=== PATIENT | male | born 1950 | race Caucasian/White ===

== ENCOUNTER 2023-01-05 07:21 | Day surgery (SDC) | payer OTHER ==
[2023-01-01 14:59] LABS: Absolute Lymphocytes (CBC) 1.2 K/uL (0.7-4.9); Hematocrit 40.8 % (39.6-49.0); Lymphocytes % 20.8 % (15.3-44.8); MCV 88.5 fL (80-100); MPV 7.3 fL (7.6-11.3); Platelets 290 thou/uL (152-406); RBC Red Blood Cell Count 4.61 M/uL (4.33-5.43)
[2023-01-01 15:08] LABS: Protime INR 1.1
--- NOTE | 2023-01-01 15:22 | RAD REPORT ---
EXAM DESCRIPTION: Kurt Kessler And Hermelinda (2 Views)01/01/2023 3:12 pm CLINICAL HISTORY: Preop for hernia repair. Hypertension COMPARISON: None FINDINGS: Lungs appear mildly to moderately hyperaerated. The lungs appear clear of acute infiltrate. The heart is normal size IMPRESSION: No acute abnormalities displayed
--- NOTE | 2023-01-02 15:23 | EKG ---
Test Date: 2023-01-01 Test Time: 14:35:26 Chemist Steroids: CHRIS MEASUREMENT RESULTS: Intervals: Rate: 57 IN: 200 QRSD: 86 QT: 412 QTc: 401 [place]: P: 56 IN: 200 QRS: 57 T: 69 INTERPRETIVE STATEMENTS: Sinus bradycardia Otherwise normal ECG Compared to ECG 10/21/2001 09:16:00 No significant changes Electronically Signed On 01-02-23 15:21:20 CDT by Royal Wright
[2023-01-05] MEDS ORDERED: Ringers Lactate 1,000 ML IV ONE ×2 (07:47→11:21)
[2023-01-05] MEDS ORDERED: CEFAZOLIN SODIUM 2 GM/VIAL ONE (07:47)
[2023-01-05] MEDS ORDERED: SUCCINYLCHOLINE 20 MG/ML (10 ML) IV ONE (08:24)
[2023-01-05] MEDS ORDERED: FENTANYL CITR 100 MCG/2 ML ONE (08:26)
[2023-01-05] MEDS ORDERED: propofoL 200 MG/20 ML VIAL IV ONE (08:26)
[2023-01-05] MEDS ORDERED: MIDAZOLAM HCL 2 MG/2 ML INJ ONE (08:27)
[2023-01-05] MEDS ORDERED: ROCURONIUM 50 MG/5 ML VIAL IV ONE (08:27)
[2023-01-05] MEDS ORDERED: LIDOCAINE 2% MPF 5 ML VIAL ONE (08:52)
[2023-01-05] MEDS ORDERED: EPHEDRINE SULF 50 MG/ML VIAL ONE (08:59)
[2023-01-05] MEDS ORDERED: dexAMETHasone 10 MG/ML VIAL ONE (09:00)
[2023-01-05] MEDS ORDERED: ONDANSETRON 4 MG/2 ML VIAL ONE (09:11)
[2023-01-05] MEDS ORDERED: KETOROLAC 30 MG/ML INJ ONE (09:11)
[2023-01-05] MEDS ORDERED: NEOSTIGMINE 1 MG/ML -10 ML VIAL ONE (09:12)
[2023-01-05] MEDS ORDERED: GLYCOPYRROLATE 0.2 MG/ML SYR ONE (09:12)
[2023-01-05] MEDS ORDERED: KETAMINE HCL IN 0.9 % NACL 50 MG/5 ML SYRINGE IV ONE (09:13)
[2023-01-05] MEDS ORDERED: Mastisol Adhesive Liq ONE (09:34)
--- NOTE | 2023-01-05 09:55 | P.OP ---
Date of Service: 01/05/23 Preop diagnosis: Right inguinal hernia Postop diagnosis: Same Procedure performed: Repair of right inguinal hernia Surgeon: Naveed Del Valle MD Customer Acquisition Manager: Trisha HURT Estimated blood loss: Minimal Specimen: Hernia sac and cord lipoma Findings: As above Anesthesia: General Complications: None Drains: None Fluids and blood products: Nonapplicable Disposition: Recovery room Operative note: Patient brought to the OR and placed in supine position. General anesthesia begun. Patient prepped and draped in the usual sterile fashion. Marcaine 0.5% infiltrated for postop pain control in a field block fashion in the right groin region. 15 blade used to make a 4 cm incision between the pubic tubercle and the anterior iliac superior spine. Subcutaneous tissue divided and bleeding controlled cautery. Liyah's fascia identified and divided. Aponeurosis of the external inguinal muscle identified and mobilized inferiorly to expose shelving edge. External ring opened. Ilioinguinal nerve identified and retracted out of the field of dissection. Cord mobilized at the pubic tubercle. Cord skeletonized. Large cord lipoma and a large hernia sac identified. Sharp and blunt dissection used to free the structures from the cord structures. High ligation of the hernia sac done with 2-0 Prolene suture ligature and freehand tie. 2-0 chromic used to tie off the base of the cord lipoma. Both structures excised and sent to pathology as specimen. Marlex mesh plug placed in the internal ring and secured with VersaTack stapler. Onlay mesh placed in the inguinal floor and secured medially to the pubic tubercle, superior to the conjoined tendon, inferiorly to the shelving edge and laterally to each other. Ilioinguinal nerve and cord structures placed back in anatomic location. 2-0 Prolene used to close the aponeurosis. 3-0 chromic used to reapproximate Liyah's fascia. 3-0 chromic used to close skin. Sterile dressing applied. Patient awakened and taken to recovery room in good general condition. CC: Dr. Mohan's office
[2023-01-05] MEDS ORDERED: HYDROCODONE/APAP 7.5/325 MG TAB PO PRN (09:58)
[2023-01-05 10:16] VITALS: BP 140/68; TEMP 98; O2SAT 96
== END 2023-01-05 12:15 | disposition home or self-care (01) ==
LOC: OR 07:21
PROVIDERS: ATTEND Surgery
PROC: 0YQ50ZZ Repair Right Inguinal Region, Open Approach (ICD-10-PCS; principal; 2023-01-05 08:30)
DX: K40.90 Unilateral inguinal hernia, without obstruction or gangrene, not specified as recurrent (principal)
CPT/HCPCS: 93005; 85025; 80048; 36415; 85610; 88302; 85730; 71046; 49505; J2704; J2710; J2001; J2250; J3010; J1100; J2405; J7120 ×2

== ENCOUNTER 2024-07-26 06:27 | Inpatient (IN) | payer OTHER ==
[2024-07-26 07:25] LABS: Absolute Lymphocytes (CBC) 0.4 K/uL (0.7-4.9); Absolute Monocytes 0.7 K/uL (0.1-1.3); Absolute Neutrophil 6.1 K/uL (1.8-8.0); Basophils % 0.5 % (0-1.3); Eosinophils % 0.6 % (0-4.4); Hematocrit 39.1 % (39.6-49.0); Hemoglobin 13.4 g/dL (13.6-17.9); MCH 30.2 pg (27.0-35.0); MCHC 34.3 g/dL (32.0-36.0); MCV 87.9 fL (80-100); Monocytes % 9.9 % (3.3-12.3); Platelets 226 thou/uL (152-406); RBC Red Blood Cell Count 4.44 M/uL (4.33-5.43); Red Cell Distribution Width 13.8 % (12.1-15.2)
[2024-07-26 07:48] LABS: Albumin 3.4 g/dL (3.4-5.0); Albumin/Globulin Ratio 0.9 (1.1-1.8); Anion Gap 6.3 mEq/L (5.0-15.0); Bilirubin Direct 0.3 mg/dL (0-0.2); Bilirubin Indirect, Calculated 0.4 mg/dL (0.2-0.8); Bilirubin Total 0.7 mg/dL (0.2-1.0); Globulin 3.6 g/dL (2.3-3.5); Magnesium 1.8 mg/dL (1.6-2.4); Potassium 3.3 mEq/L (3.5-5.1)
[2024-07-26 07:50] LABS: Troponin High Sensitivity 94.4 pg/mL (<58.9)
--- NOTE | 2024-07-26 08:32 | RAD REPORT ---
Procedure: Chest Single View HISTORY: Chest pain COMPARISON: 2022 FINDINGS: The lungs appear clear of acute infiltrate. No significant pleural effusion noted. The heart is normal size. IMPRESSION: No acute abnormality is displayed.
[2024-07-26] MEDS ORDERED: ASPIRIN 81 MG CHEWABLE TABLET ONE (08:34)
[2024-07-26] MEDS ORDERED: ACETAMINOPHEN 500 MG TAB PO PRN (08:39)
--- NOTE | 2024-07-26 08:39 | EDPHYS ---
Physician Documentation [facility] Name: Rob Cunningham Age: 74 yrs Sex: Male : 1950 Arrival Date: 07/26/2024 Time: 06:27 Bed 8 Private MD: ED Physician David Bentley HPI: 07/26 11:51 This 74 yrs old Male presents to ER via Ambulatory with complaints of Chest Pain. ms3 11:51 74-year-old male with past medical history of hypertension, hypercholesterolemia, ms3 gastric ulcers presents to the emergency department for nausea, vomiting, diarrhea that began on Thursday, nausea that continued on Thursday, and diarrhea that began again yesterday. Patient states last night he started developing chest tightness. He took Tylenol without relief of his symptoms. Patient states his discomfort is a 6/10. He denies shortness of breath.. Historical: - Allergies: 06:36 No Known Allergies; lg3 - Home Meds: 06:36 fenofibrate oral [Active]; amlodipine oral [Active]; rempril [Active]; atorvastatin lg3 oral [Active]; Omeprazole Oral [Active]; aspirin 81 mg Oral capsule [Active]; Folic Acid Oral [Active]; - PMHx: 06:36 Hypertensive disorder; Hypercholesterolemia; gastric ulcers; lg3 - PSHx: 06:36 right inguinal hernia repair; right ankle; lg3 - Immunization history:: Adult Immunizations up to date. - Infectious Disease History:: Denies. - Social history:: Smoking status: Patient denies any tobacco usage or history of. Patient uses alcohol, occasionally. ROS: 11:51 Constitutional: Negative for fever, and chills. ms3 11:51 Respiratory: Negative for shortness of breath, cough, wheezing, and pleuritic chest pain, 11:51 MS/Extremity: Negative for injury and deformity, Skin: Negative for injury, rash, and discoloration, 11:51 Cardiovascular: Positive for chest pain, 11:51 Abdomen/GI: Positive for nausea, vomiting, and diarrhea, Exam: 11:51 Constitutional: This is a well developed, well nourished patient who is awake, alert, ms3 and in no acute distress. Cardiovascular: Regular rate and rhythm with a normal S1 and S2. No gallops, murmurs, or rubs. Normal PMI, no JVD. No pulse deficits. Respiratory: Lungs have equal breath sounds bilaterally, clear to auscultation and percussion. No rales, rhonchi or wheezes noted. No increased work of breathing, no retractions or nasal flaring. Abdomen/GI: Soft, non-tender, with normal bowel sounds. No distension or tympany. No guarding or rebound. No evidence of tenderness throughout. Skin: Warm, dry with normal turgor. Normal color with no rashes, no lesions, and no evidence of cellulitis. MS/ Extremity: Pulses equal, no cyanosis. Neurovascular intact. Full, normal range of motion. Vital Signs: 06:33 BP 149 / 82; Pulse 71; Resp 17 S; Temp 97.8(O); Pulse Ox 100% on R/A; Weight 79.38 kg lg3 (R); Height 6 ft. 2 in. (R); Pain 7/10; 08:55 BP 129 / 85; Pulse 58; Resp 16; Pulse Ox 99% on R/A; ld1 10:26 BP 126 / 67; Pulse 59; Resp 18; Pulse Ox 98% on R/A; ld1 06:33 Body Mass Index 22.47 (79.38 kg, 187.96 cm) lg3 06:33 Pain Scale: Adult lg3 MDM: 07:29 Medical Screening Exam initiated ms3 08:36 Management of patient was discussed with the following: Hospitalist: Dr Mohan- Would ms3 like cardiology consult, Lovenox 80 mg q 12 hours, and inpatient admission.. 11:51 Differential diagnosis: abnormal EKG, acute myocardial infarction, coronary artery ms3 disease chest wall pain. HEART Score: History: Moderately Suspicious (1), ECG: Normal (0), Age: > or = 65 years (2), Risk Factors: 1 or 2 risk factors (1), [Hypercholesterolemia] [Hypertension] Troponin: > 1 and < 3 x normal limit (1), Total Score = 3. The patient was given aspirin in the Emergency Department. Data reviewed: vital signs, nurses notes, lab test result(s), EKG, radiologic studies, and as a result, I will admit patient. Consideration of Admission/Observation Patient was admitted/placed on observation. Management of patient was discussed with the following: Disabilities Services Officer: Discussed case with Dr Wright. I considered the following discharge prescriptions or medication management in the emergency department Medications were administered in the Emergency Department. See MAR. Independent interpretation of the following test(s) in the Emergency Department EKG: See my EKG interpretation above. Counseling: I had a detailed discussion with the patient and/or guardian regarding the historical points, exam findings, and any diagnostic results supporting the discharge/admit diagnosis, lab results, radiology results, the need for further work-up and treatment in the hospital. ED course: Discussed elevated troponin and necessity for admission with patient and his . They understand and agree with plan. All questions were answered. Case was discussed with Dr. Mohan.. 07/26 07:03 Order name: Basic Metabolic Panel; Complete Time: 08:03 ms3 07/26 07:03 Order name: CBC with Diff; Complete Time: 08:03 ms3 07/26 07:03 Order name: LFT's; Complete Time: 08:03 ms3 07/26 07:03 Order name: Magnesium; Complete Time: 08:03 ms3 07/26 07:03 Order name: Troponin HS; Complete Time: 08:03 ms3 07/26 08:44 Order name: CBC with Automated Diff EDMS 07/26 08:44 Order name: Comprehensive Metabolic Panel EDMS 07/26 08:44 Order name: Troponin High Sensitivity EDMS 07/26 08:44 Order name: Troponin High Sensitivity EDMS 07/26 08:44 Order name: Troponin High Sensitivity EDMS 07/26 08:44 Order name: Troponin High Sensitivity EDMS 07/26 07:03 Order name: XRAY Chest (1 view); Complete Time: 08:34 ms3 07/26 07:03 Order name: EKG; Complete Time: 07:03 ms3 07/26 08:44 Order name: CONS Physician Consult EDMS 07/26 07:03 Order name: Cardiac monitoring; Complete Time: 07:16 ms3 07/26 07:03 Order name: EKG - Nurse/Tech; Complete Time: 07:16 ms3 07/26 07:03 Order name: IV Saline Lock; Complete Time: 07:16 ms3 07/26 07:03 Order name: Labs collected and sent; Complete Time: 07:16 ms3 07/26 07:03 Order name: O2 Per Protocol; Complete Time: 07:16 ms3 07/26 07:03 Order name: O2 Sat Monitoring; Complete Time: 07:16 ms3 Administered Medications: 08:37 Drug: Aspirin PO Chewable Tablet 324 mg PO once; 81 mg tablets x 4 Route: PO; ld1 09:00 Follow up: Response: No adverse reaction iw 09:43 Drug: Enoxaparin Sub-Q 80 mg Sub-Q once Route: Sub-Q; Site: abdomen; ld1 10:00 Follow up: Response: No adverse reaction iw Disposition Summary: 07/26/24 08:38 Hospitalization Ordered Notes: Hospitalization Status: Inpatient Admission ms3 Provider: Toni Mohan ms3 Condition: Stable ms3 Problem: new ms3 Symptoms: are unchanged ms3 Bed/Room Type: Standard ms3 Location: Telemetry/MedSurg (Inpatient)(07/26/24 15:40) bd Room Assignment: [facility](07/26/24 15:40) Diagnosis - Chest pain, unspecified ms3 - Elevated troponin ms3 - Nausea with vomiting, unspecified ms3 Forms: - Medication Reconciliation Form ms3 - SBAR form ms3 - Leadership Thank You Letter ms3 Signatures: Dispatcher [employer] EDJessica Shepard Lacie, RN RN lg3 David Bentley, DO ms3 Denisha Bentley RN RN ld1 Mary Roque RN RN kb3 Rayna Carrillo RN iw Corrections: (The following items were deleted from the chart) 10:46 08:38 Telemetry/MedSurg (Inpatient) ms3 kb3 10:46 08:38 ms3 kb3 15:40 10:46 [facility] ER HOLD kb3 bd 15:40 10:46 ERHOLD- kb3 bd
--- NOTE | 2024-07-26 08:39 | ER ---
Nurse's Notes [facility] Name: Rob Cunningham Age: 74 yrs Sex: Male : 1950 Arrival Date: 07/26/2024 Time: 06:27 Bed 8 Private MD: Diagnosis: Chest pain, unspecified;Elevated troponin;Nausea with vomiting, unspecified Presentation: 07/26 06:33 Chief complaint: Patient states: vomiting and diarrhea starting Thursday. new onset lg3 pain to diaphragm region at 0000. Coronavirus screen: Client denies travel out of the [place] in the last 14 days. At this time, the client does not indicate any symptoms associated with coronavirus-19. Ebola Screen: No symptoms or risks identified at this time. Initial Sepsis Screen: Does the patient meet any 2 criteria? No. Patient's initial sepsis screen is negative. Does the patient have a suspected source of infection? No. Patient's initial sepsis screen is negative. Risk Assessment: Do you want to hurt yourself or someone else? Patient reports no desire to harm self or others. Onset of symptoms was July 26, 2024. 06:33 Method Of Arrival: Ambulatory lg3 06:33 Acuity: TRAN 3 lg3 Triage Assessment: 06:36 General: Appears in no apparent distress. comfortable, Behavior is calm, cooperative. lg3 Pain: Complains of pain in diaphragm Pain does not radiate. Pain currently is 7 out of 10 on a pain scale. Quality of pain is described as heavy, pressure. EENT: No deficits noted. No signs and/or symptoms were reported regarding the EENT system. Neuro: No deficits noted. Rodrigues Agitation-Sedation Scale (RASS): 0 - Alert and Calm Level of Consciousness is awake, alert, obeys commands, Oriented to person, place, time, situation. Cardiovascular: Reports chest pain, Heart tones S1 S2 present Capillary refill < 3 seconds Clubbing of nail beds is absent JVD is absent Patient's skin is warm and dry. Rhythm is sinus rhythm. Respiratory: No deficits noted. Airway is patent Respiratory effort is even, unlabored, Respiratory pattern is regular, symmetrical, Breath sounds are clear bilaterally. GI: Abdomen is flat, non-distended, Reports diarrhea, indigestion, nausea, vomiting. : No signs and/or symptoms were reported regarding the genitourinary system. Derm: No deficits noted. No signs and/or symptoms reported regarding the dermatologic system. Skin is intact, is healthy with good turgor, Skin is dry, Skin is normal, Skin temperature is warm. Musculoskeletal: No deficits noted. No signs and/or symptoms reported regarding the musculoskeletal system. Circulation, motion, and sensation intact. Range of motion: intact in all extremities. Historical: - Allergies: 06:36 No Known Allergies; lg3 - Home Meds: 06:36 fenofibrate oral [Active]; amlodipine oral [Active]; rempril [Active]; atorvastatin lg3 oral [Active]; Omeprazole Oral [Active]; aspirin 81 mg Oral capsule [Active]; Folic Acid Oral [Active]; - PMHx: 06:36 Hypertensive disorder; Hypercholesterolemia; gastric ulcers; lg3 - PSHx: 06:36 right inguinal hernia repair; right ankle; lg3 - Immunization history:: Adult Immunizations up to date. - Infectious Disease History:: Denies. - Social history:: Smoking status: Patient denies any tobacco usage or history of. Patient uses alcohol, occasionally. Screenin:17 [facility] ED Fall Risk Assessment (Adult) History of falling in the last 3 months, iw including since admission No falls in past 3 months (0 pts) Confusion or Disorientation No (0 pts) Intoxicated or Sedated No (0 pts) Impaired Gait No (0 pts) Mobility Assist Device Used No (0 pt) Altered Elimination No (0 pt) Score/Fall Risk Level 0 - 2 = Low Risk Oriented to surroundings, Maintained a safe environment. Abuse screen: Denies threats or abuse. Nutritional screening: No deficits noted. Tuberculosis screening: No symptoms or risk factors identified. Assessment: 07:16 General: Appears in no apparent distress. Behavior is calm, cooperative. Pain: iw Complains of pain in diaphragm, right breast and left breast. Pain: Pain does not radiate. Pain began 1 day ago. Is continuous. Neuro: Level of Consciousness is awake, alert, obeys commands, Oriented to person, place, time, situation, Moves all extremities. Full function. GI: Reports diarrhea, nausea. Derm: Skin is intact, is healthy with good turgor. Musculoskeletal: Range of motion: intact in all extremities. 08:55 Reassessment: Patient appears in no apparent distress at this time. No changes from ld1 previously documented assessment. Patient and/or family updated on plan of care and expected duration. Pain level reassessed. Patient is alert, oriented x 3, equal unlabored respirations, skin warm/dry/pink. Vital Signs: 06:33 BP 149 / 82; Pulse 71; Resp 17 S; Temp 97.8(O); Pulse Ox 100% on R/A; Weight 79.38 kg lg3 (R); Height 6 ft. 2 in. (R); Pain 7/10; 08:55 BP 129 / 85; Pulse 58; Resp 16; Pulse Ox 99% on R/A; ld1 10:26 BP 126 / 67; Pulse 59; Resp 18; Pulse Ox 98% on R/A; ld1 06:33 Body Mass Index 22.47 (79.38 kg, 187.96 cm) lg3 06:33 Pain Scale: Adult 3 ED Course: 06:29 Patient arrived in ED. jj6 06:36 Triage completed. lg3 06:36 Arm band placed on left wrist. lg3 07:00 EKG done, by ED staff. Inserted saline lock: 22 gauge in left antecubital area, using vk aseptic technique. Blood collected. Flushed with 10 mL NS. 07:02 David Bentley DO is Attending Physician. ms3 07:16 Rayna Carrillo, RN is Primary Nurse. iw 07:17 Patient has correct armband on for positive identification. Placed in gown. Provided iw Education on: labs. Client placed on continuous cardiac and pulse oximetry monitoring. NIBP monitoring applied. client account specialist on. 07:48 XRAY Chest (1 view) In Process Unspecified. EDMS 08:37 Toni Mohan MD is Hospitalizing Provider. ms3 Administered Medications: 08:37 Drug: Aspirin PO Chewable Tablet 324 mg PO once; 81 mg tablets x 4 Route: PO; ld1 09:00 Follow up: Response: No adverse reaction iw 09:43 Drug: Enoxaparin Sub-Q 80 mg Sub-Q once Route: Sub-Q; Site: abdomen; ld1 10:00 Follow up: Response: No adverse reaction iw Medication: 07:17 VIS not applicable for this client. iw Outcome: 08:38 Decision to Hospitalize by Provider. ms3 16:11 Patient left the ED. ld1 Signatures: Dispatcher [employer] EDAracelis Quintanane, RN RN iw Able, Vickie, RN RN lg3 Bentley, DO ANTOINETTE Hernandez ms3 Bentley, ESTUARDO Denny RN ld1 Stella Knight6 Margareth Luciano
[2024-07-26] MEDS: ENOXAPARIN 80 MG/0.8 ML SQ SCH (09:00)
[2024-07-26] MEDS ORDERED: ENOXAPARIN 80 MG/0.8 ML SQ ONE (09:38)
--- NOTE | 2024-07-26 12:58 | P.CNS ---
Date of Consult: 07/26/24 Chief Complaint: chest pain History of Present Illness: Patient with PMH of HTN presented with abdominal pain, diarrhea for last few days then developed chest pain yesterday across chest, no radiation, felt like pressure, denies any other cardiac symptoms. Allergies No Known Allergies Allergy (Verified 01/01/23 14:27) Home medications list reviewed: Yes Home Medications: Amlodipine Besylate 5 mg PO DAILY 01/01/23 Ascorbic Acid [Vitamin C] 500 mg PO DAILY 01/01/23 Aspirin [Low Dose Aspirin EC] 81 mg PO DAILY 01/01/23 Atorvastatin Calcium [Lipitor] 20 mg PO DAILY 01/01/23 Cholecalciferol (Vitamin D3) [Vitamin D3] 2,000 unit PO DAILY 01/01/23 Cyanocobalamin (Vitamin B-12) [Vitamin B-12] 500 mcg PO DAILY 01/01/23 Fenofibrate,Micronized [Fenofibrate] 134 mg PO DAILY 01/01/23 Fish Oil/Dha/Epa [Fish Oil 1,200 mg Fish Oil] 1 each PO DAILY 01/01/23 Folic Acid 1 mg PO DAILY 01/01/23 Magnesium Oxide [Mag 0X Tab] 400 mg PO DAILY 01/01/23 Omeprazole [Prilosec] 40 mg PO DAILY 01/01/23 Ramipril [Altace] 10 mg PO DAILY 01/01/23 hydroCHLOROthiazide [Hydrochlorothiazide] 25 mg PO DAILY 01/01/23 Review of Systems 10-point ROS is otherwise unremarkable Physical Examination Temp Pulse Resp BP Pulse Ox 55 16 116/66 99 07/26/24 12:00 07/26/24 12:00 07/26/24 12:00 07/26/24 12:00 General: Alert, In no apparent distress HEENT: Atraumatic, PERRLA, Mucous membr. moist/pink, EOMI, Sclerae nonicteric Neck: Supple, 2+ carotid pulse no bruit, No LAD, Without JVD or thyroid abnormality Respiratory: Clear to auscultation bilaterally, Normal air movement Cardiovascular: Regular rate/rhythm, Normal S1 S2 Gastrointestinal: Normal bowel sounds, No tenderness Musculoskeletal: No tenderness Integumentary: No rashes Neurological: Normal gait, Normal speech, Normal tone, Normal affect Lymphatics: No axilla or inguinal lymphadenopathy Laboratory Data (last 24 hrs) 07/26/24 07/26/24 07:05 07:05 WBC 7.30 Hgb 13.4 L Hct 39.1 L Plt Count 226 Sodium 138 Potassium 3.3 L BUN 23 H Creatinine 1.02 Glucose 104 Magnesium 1.8 Total Bilirubin 0.7 AST 129 H ALT 132 H Alkaline Phosphatase 50 - Problems (1) NSTEMI (non-ST elevated myocardial infarction) Current Visit: Yes Status: Acute Plan: Troponin mild elevated, EKG no significant ST-T wave changes, continue to trend cardiac enzymes x3 NPO after midnight for coronary angiogram continue ASA 81 mg daily continue Lovenox get echo
[2024-07-26 18:22] LABS: Albumin 3.5 g/dL (3.4-5.0); Anion Gap 9.7 mEq/L (5.0-15.0); Bilirubin Total 0.8 mg/dL (0.2-1.0); Globulin 3.6 g/dL (2.3-3.5); Potassium 3.7 mEq/L (3.5-5.1); Protein, Total 7.1 g/dL (6.4-8.2)
[2024-07-26 18:23] LABS: Troponin High Sensitivity 85.7 pg/mL (<58.9)
[2024-07-26] MEDS: ATORVASTATIN 40 MG TAB PO SCH (20:01)
--- NOTE | 2024-07-27 01:23 | HP ---
Date of Admission: 07/26/2024 Chief Complaint: Chest pain. History Of Present Illness: This is a 74-year-old pleasant male patient, who started to have nausea, vomiting, diarrhea over the weekend on Thursday and as of yesterday, all of his GI symptoms resolved . Last night, he started to have some chest pain in the center and all across the lower chest, descr ibing as tightness type of feeling and he had 2 to 3 episodes of this kind of pain. Therefore, he de cided to come to emergency room today. After he was evaluated in the ER, he was admitted [facility] with non-STEMI. When I saw him this evening, he was asymptomatic. After his evaluation in the emergency room, Cardiology consultation was requested and Dr. Mccormack already has evaluated him. The patient reports that his chest pain did not radiate anywhere and did not have any associated nausea o r diaphoresis. Allergies: TO BYSTOLIC. Medications: Amlodipine 5 mg daily, aspirin 81 mg daily, atorvastatin 20 mg daily, vitamin D3 2000 u nits daily, fenofibrate 134 mg daily, folic acid 1 mg daily, hydrochlorothiazide 25 mg daily, omepraz ole 40 mg daily, ramipril 10 mg daily, vitamin B12 500 mcg daily. Review of Systems: Cardiovascular: As mentioned above. GI: As mentioned above. All other systems reviewed and negative. Past Medical History: Significant for hypertension, mixed hyperlipidemia, gastroesophageal reflux di sease, impaired fasting glucose, benign prostatic hypertrophy, abnormal liver function tests, and chr onic kidney disease. 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 Family History: Father , had prostate cancer, hypertension, hyperlipidemia. Mother has hyperten lesia, coronary artery disease. Social History: Negative for smoking. Use of alcohol, occasional beer. Physical Examination: Vital Signs: Temperature 97.9, pulse 59, respiratory rate 18, blood pressure 111/64, oxygen saturati on 97%, height 6 feet, weight 174 pounds. General: Awake, alert, oriented, not in distress. HEENT: Head atraumatic, normocephalic. Conjunctivae nonerythematous. Sclerae white. Mouth, no thr ush or edema noted. Ears/Nose, no mass, lesion, discharge noted. Neck: Supple. No JVD, lymph nodes, bruit, thyromegaly noted. Lungs: Bilateral good equal air entry. Clear to auscultation. No rhonchi. No rales. Heart: Normal heart sounds, no murmur or gallop. Abdomen: Soft, bowel sounds normal. No guarding, rigidity, tenderness, mass, hepatosplenomegaly, dis tention, or bruit noted. Extremities: No leg edema. No calf tenderness. Skin: No rash, ulcer, cellulitis. Lymphatics: No lymph node enlargement in neck, supraclavicular, infraclavicular region. Neuro: No focal neurological deficit. Chest: Unremarkable. External Genitalia: Deferred. Rectal: Deferred. Laboratory Data: WBC 7.3, hemoglobin 13.4, and platelets 226. Initial chemistry shows sodium 138, p otassium 3.3, chloride 104, bicarb 31, BUN 23, creatinine 1.02, glucose 104. Liver function tests, A ST 129, ALT 132, alkaline phosphatase 50, total bilirubin 0.7. Initial troponin 94.4. Repeat chemis try shows sodium 141, potassium 3.7, chloride 105, bicarb 30, BUN 16, creatinine 0.93, glucose 97. A ST 104, ALT 143, troponin 85.7, and alkaline phosphatase 49. Chest x-ray, no acute cardiopulmonary c hanges. EKG, no acute ST-T changes. Impression: 1. Non-STEMI. 2. Abnormal liver function tests. 3. Hypertension. 4. Mixed hyperlipidemia. 5. Chronic aspirin therapy. 6. Gastroesophageal reflux disease. 7. Impaired fasting glucose. 8. Benign prostatic hypertrophy. 9. Abnormal liver function test. 10. Acute gastroenteritis. Plan: We will admit the patient to hospital for further evaluation and management of this problem. The patient is appropriate for inpatient and is expected to spend 2 midnights in hospital. We will g o ahead and continue aspirin and Lovenox which was started in the emergency room after I was contacte d. Cardiology consultation was requested and Dr. Mccormack has evaluated the patient. He is planning t o do cardiac cath tomorrow and we will keep the patient n.p.o. after midnight. High dose statin ther apy will be started. We will get a lipid profile done tomorrow morning. For hypertension, we will n ot give any of the blood pressure medications at this point. Monitor blood pressure and consider to restart blood pressure medication at appropriate time. For acute gastroenteritis, no need for furthe r intervention as the patient's symptoms has resolved. For abnormal liver function tests, I will go ahead and order abdominal ultrasound for further evaluation. Total time spent today was 80 minutes including review of last office visit record from 07/06/2024, c ommunication with emergency room physician, review of emergency room visit record, and performing manda casanova's evaluation and management. FILI/MODL Voice ID: [id number]
[2024-07-27] MEDS: ASPIRIN 81 MG CHEWABLE TABLET ONE (05:56)
[2024-07-27] MEDS: ASPIRIN EC 81 MG TAB PO ONE (06:11)
[2024-07-27] MEDS: PANTOPRAZOLE 40MG TABLET PO SCH (06:16)
[2024-07-27] MEDS: ASPIRIN EC 81 MG TAB PO SCH (06:18)
--- NOTE | 2024-07-27 07:51 | RAD REPORT ---
EXAMINATION: COMPLETE ABDOMINAL ULTRASOUND CLINICAL INDICATION: abn LFTs TECHNIQUE: Grayscale ultrasonography of the abdomen was performed. COMPARISON: 01/23/2021 FINDINGS: LIVER: Normal size and echogenicity. No masses seen. GALLBLADDER: No gallstones, gall bladder wall thickening or pericholecystic fluid. BILE DUCTS: Intrahepatic and extrahepatic bile ducts appear normal. Measured near the calli hepatis , the common bile duct is 4 mm. RIGHT KIDNEY: Normal in echogenicity and size. No calculus, solid mass or hydronephrosis. LEFT KIDNEY:. Normal in echogenicity and size. No calculus, solid mass or hydronephrosis. SPLEEN: Normal in echogenicity, with length of 11.3 cm. PANCREAS/AORTA: Partially obscured by bowel gas without abnormality grossly appreciated. IMPRESSION: No acute or significant abnormalities.
[2024-07-27] MEDS ORDERED: HEPARIN 10,000 UNIT/10 ML VIAL IV ONE (08:43)
[2024-07-27] MEDS ORDERED: HEPA 1000U/500MLS 2,000 UNIT/1,000 ML BAG IV ONE (08:43)
[2024-07-27] MEDS ORDERED: HEPARIN 5000 UNIT/ML 1 ML VIAL ONE (08:44)
[2024-07-27] MEDS ORDERED: LIDOCAINE 1% 20 ML MDV ONE (08:44)
[2024-07-27] MEDS ORDERED: MIDAZOLAM HCL 2 MG/2 ML INJ ONE (08:45)
[2024-07-27] MEDS ORDERED: FENTANYL CITR 100 MCG/2 ML ONE (08:45)
[2024-07-27] MEDS: NA CHLORIDE 0.9% 500 ML ONE (08:48)
[2024-07-27 09:18] VITALS: BMI 23.6
--- NOTE | 2024-07-27 11:37 | P.PN ---
Subjective Date of Service: 07/27/24 Chief Complaint: chest pain Subjective: No new changes, No C/O voiced, Tolerating diet, Ambulating, Improving Review of Systems 10-point ROS is otherwise unremarkable Physical Examination - Vital Signs Temperature: 98.2 F Blood Pressure: 110/59 Pulse: 54 Respirations: 17 Pulse Ox (%): 97 - Physical Exam General: Alert, In no apparent distress HEENT: Atraumatic, PERRLA, EOMI Neck: Supple, JVD not distended Respiratory: Clear to auscultation bilaterally, Normal air movement Cardiovascular: Regular rate/rhythm, Normal S1 S2 Gastrointestinal: Normal bowel sounds, No tenderness Musculoskeletal: No tenderness Integumentary: No rashes Neurological: Normal speech, Normal tone, Normal affect Lymphatics: No axilla or inguinal lymphadenopathy - Studies Medications List Reviewed: Yes Assessment And Plan - Current Problems (Diagnosis) (1) NSTEMI (non-ST elevated myocardial infarction) Current Visit: Yes Status: Acute Plan: Troponin mild elevated, no significant delta, EKG no significant ST-T wave changes, Coronary angiogram was done and did not show any significant CAD. continue ASA 81 mg daily lower lipitor to 20 mg daily outpatient follow up with PCP to check on BP medications as BP has been good off medications. stop Lovenox
[2024-07-27 12:03] VITALS: O2SAT 100
--- NOTE | 2024-07-27 12:32 | EKG ---
Test Date: 2024-07-26 Test Time: 06:39:56 Manager Medical Device: NIESHA MEASUREMENT RESULTS: Intervals: Rate: 69 WI: 196 QRSD: 88 QT: 386 QTc: 413 [place]: P: 39 WI: 196 QRS: 44 T: 34 INTERPRETIVE STATEMENTS: Normal sinus rhythm Normal ECG Compared to ECG 01/01/2023 14:35:26 Sinus bradycardia no longer present Electronically Signed On 07-27-24 12:26:23 CDT by Jacob Mccormack
--- NOTE | 2024-07-27 16:00 | OP ---
Date of Procedure: 07/27/2024 Surgeon: Jacob Mccormack Procedure Performed: Selective coronary angiogram. Indication For Procedure: Unstable angina. Complications: None. Estimated Blood Loss: Less than 50 cc. Access: Right radial, closed by TR band. Sedation Time: 20 minutes with 1 of Versed and 25 of fentanyl. Description Of Procedure: After risks, and benefits, and alternatives were explained to patient, pat ient agreed to proceed with procedure and signed informed consent. 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 Time-out was performed. Sedation was administer ed. Next, right radial access was obtained using ultrasound-guided micropuncture technique. [place] 4 .0 catheter was advanced to the aortic root. Selective angiogram was done using the same catheter. At the end of the procedure, catheter was removed over a J-wire. Sheath was removed. TR band was ap plied. Hemostasis was achieved and the patient was moved back to Recovery in stable condition. Findings: 1. Left main normal. 2. LAD; proximal mild luminal irregularities with mid 30% disease, then mild luminal irregularities. 3. Left circ; mild luminal irregularities. 4. RCA; ostial 20% to 30% disease, then mild luminal irregularities. Assessment And Plan: Mild coronary artery disease. Plan is to continue medical treatment. KIRAN/CORTES Voice ID: [id number] Report ID: [id number]
[2024-07-27 16:43] VITALS: BP 125/65; TEMP 97.9
--- NOTE | 2024-07-27 21:10 | DS ---
Date of Discharge: 07/27/2024 Disposition: Discharged to go home. Physical Examination: HEENT: Unremarkable. Lungs: Clear to auscultation. Heart: Sounds normal. Abdomen: Soft. Bowel sounds normoactive. No guarding, rigidity, tenderness, distention. EXTREMITIES: No leg edema. Laboratory Data: Today, cholesterol shows triglyceride 123, total cholesterol 85, LDL 28, HDL 32. F or chemistry yesterday; sodium 141, potassium 3.7, chloride 105, bicarb 30, BUN 16, creatinine 0.93, glucose 97. Liver function tests; AST 104, ALT 143, alkaline phosphatase 49. For troponin first set 94.4, second set 85.7, third set 89.1, and last set 89.2. Discharge Medications And Instructions: 1. Continue all prior home medications. 2. Follow up at my office next week. Hospital Course: A 74-year-old pleasant male patient came into emergency room with complaints of avery st pain. Please see dictated H and P for more information. The patient was evaluated in the emergen cy room. He was admitted to the hospital with non-STEMI. He was started on aspirin and Lovenox in e mergency room. The patient does take aspirin daily at home. His other home medications were continu ed. Cardiology consultation was obtained from Dr. Mccormack and today patient had cardiac cath done, wh ich showed 20%-30% stenosis in his coronary arteries. No intervention required. After the cardiac c ath was done, the patient was discharged to go home later this evening in stable condition. Final Diagnoses: 1. [id number] myocardial infarction. 2. Coronary artery disease. 3. Abnormal liver function test. 4. Hypertension. 5. Mixed hyperlipidemia. 6. Chronic aspirin therapy. 7. Gastroesophageal reflux disease. 8. Impaired fasting glucose. 9. Benign prostatic hypertrophy. 10. Acute gastroenteritis. Total time spent 40 minutes. FILI/MODL Voice ID: [id number] Report ID: [id number]
== END 2024-07-27 20:00 | disposition home or self-care (01) | DRG 282 ==
LOC: ER 06:27 → ERHOLD 08:39 → 2ND 15:45
PROVIDERS: ADMIT Internal Medicine; ATTEND Internal Medicine
PROC: B2111ZZ Fluoroscopy of Multiple Coronary Arteries using Low Osmolar Contrast (ICD-10-PCS; principal; 2024-07-27)
DX: I21.4 Non-ST elevation (NSTEMI) myocardial infarction (principal); I25.10 Atherosclerotic heart disease of native coronary artery without angina pectoris; I10 Essential (primary) hypertension; E78.5 Hyperlipidemia, unspecified; K21.9 Gastro-esophageal reflux disease without esophagitis; N40.0 Benign prostatic hyperplasia without lower urinary tract symptoms; Z79.82 Long term (current) use of aspirin; R73.01 Impaired fasting glucose; I12.9 Hypertensive chronic kidney disease with stage 1 through stage 4 chronic kidney disease, or unspecified chronic kidney disease; N18.9 Chronic kidney disease, unspecified
CPT/HCPCS: 36415; 71045; 76700; 76937; 80048; 80053; 80061; 80076; 83735; 84484; 85025; 93005; 93454; 96372; 99152; 99153; 99284; C1893; J1644; J2003; J2250; J3010; J7040; Q9966